=== PATIENT | female | born 1985 | race Two or more races ===

== ENCOUNTER → 2019-07-16 | Outpatient (CLI) | payer OTHER ==
--- NOTE | 2019-07-16 18:00 | REP ---
Clinical: Trauma. Technique: AP and lateral views of the right forearm. Findings: No acute fracture or dislocation. Skeletal structures, joint spaces, and surrounding soft tissues are normal. No subcutaneous emphysema or foreign body. Impression: No acute fracture or dislocation. Electronically Signed by Sebastian Flower MD 07/16/2019 05:52 P
== END ==
LOC: M LRY 17:41
PROVIDERS: ATTEND Nurse Practitioner Family
DX: S59.911A Unspecified injury of right forearm, initial encounter (principal); X58.XXXA Exposure to other specified factors, initial encounter; Y92.9 Unspecified place or not applicable
CPT/HCPCS: 73090; 87804; 96372; G0463; J1885

== ENCOUNTER → 2020-01-31 | Outpatient (CLI) | payer OTHER ==
[~2020-01-31] MED LIST: E-Z-GAS II EFFERVESCENT PACKET (SODIUM BICARB./CITRIC ACID/SIMETHICONE) As Ordered ONE; E-Z-HD 98% w/w 340GM SUSP BTL As Ordered ONE; E-Z-PAQUE 96% w/w SUSP 176GM BTL As Ordered ONE
--- NOTE | 2020-03-02 09:05 | REP ---
UPPER GI SINGLE CONTRAST The procedure was performed under the direct supervision of Dr. Sol. The images were reviewed with Dr. Sol. The cone operator film shows no organomegaly or pathological masses. The intestinal gas pattern is nonspecific. There are surgical clips noted in the right upper quadrant. There are surgical sutures in the epigastric region consistent with the patients history of gastric sleeve. There is lumbar fixation hardware at L4 and L5. Liquid barium was given in the erect and prone oblique positions in order to perform a double contrast upper GI examination. The oral and pharyngeal stages of deglutition are unremarkable. The esophageal transport and prompt and efficient and there is no esophagitis, stricture, or mucosal ring. There is a sliding type hiatal hernia. There is gastroesophageal reflux demonstrated to the level of the lj. In the fundus of the stomach, there are thickened folds, which likely represent gastritis. There is no hunter ulcer identified. The remainder of the stomach demonstrates postsurgical changes consistent with the patients history of gastric sleeve. The duodenum is grossly normal. The mucosal folds are smooth and regular. There is no evidence of duodenitis, pancreatitis, peptic ulcer disease, or neoplasm. The visualized portion of the proximal small bowel appears normal in course and caliber. IMPRESSION: * There is a sliding-type hiatal hernia with gastroesophageal reflux demonstrated to the level of the lj. * There are thickened folds in the gastric fundus, which likely represents gastritis. There is no hunter ulcer identified. 1.2 minutes of fluoroscopy time was utilized for this procedure. [facility]
== END ==
LOC: M RAD 07:47
PROVIDERS: ATTEND Physician Assistant
DX: K44.9 Diaphragmatic hernia without obstruction or gangrene (principal); K21.0 Gastro-esophageal reflux disease with esophagitis; Z98.84 Bariatric surgery status

== ENCOUNTER 2021-10-25 18:47 | Emergency (ER) | payer OTHER ==
[~2021-10-25] VITALS: Ht 157.5 cm; Wt 72.7 kg
[2021-10-25 23:53] VITALS: BP 156/96
[2021-10-26] MEDS ORDERED: guaiFENesin ER 600 MG TAB PO STA (01:14)
[2021-10-26] MEDS ORDERED: BENZONATATE 100MG CAPSULE PO ONE (01:15)
[2021-10-26] MEDS ORDERED: KETOROLAC 60MG 2ML VIAL IM ONE (01:15)
[2021-10-26] MEDS ORDERED: LIDOCAINE VISCOUS 2% SOLN 15ML UDC SS ONE (01:15)
[2021-10-26] MEDS ORDERED: AZITHROMYCIN 250MG TABLET PO ONE (02:05)
[2021-10-26] MEDS ORDERED: MUCI1TAB16 PO (02:09)
[2021-10-26] MEDS ORDERED: LIDO2SOL17 PO (02:09)
[2021-10-26] MEDS ORDERED: BENZ200C70 PO (02:09)
[2021-10-26] MEDS ORDERED: AZIT-12 PO (02:09)
[2021-10-26] MEDS ORDERED: PSEU120T19 PO (02:09)
== END 2021-10-26 02:21 | disposition home or self-care (01) ==
LOC: M ED 18:47
DX: J06.9 Acute upper respiratory infection, unspecified (principal); J45.909 Unspecified asthma, uncomplicated; F17.200 Nicotine dependence, unspecified, uncomplicated; Z98.84 Bariatric surgery status; Z88.0 Allergy status to penicillin
CPT/HCPCS: 71046; 87486; 87581; 87633; 87798; 96372; 99283; J1885

== ENCOUNTER → 2022-04-03 | Outpatient (REF) ==
[~2022-04-03] MED LIST changes: +AZIT-12 PO; +BENZ200C70 PO; -E-Z-GAS II EFFERVESCENT PACKET (SODIUM BICARB./CITRIC ACID/SIMETHICONE) As Ordered ONE; -E-Z-HD 98% w/w 340GM SUSP BTL As Ordered ONE; -E-Z-PAQUE 96% w/w SUSP 176GM BTL As Ordered ONE; +LIDO2SOL17 PO; +MUCI1TAB16 PO; +PSEU120T19 PO
== END ==
LOC: M LABSMTC 09:31
PROVIDERS: ATTEND Pediatrics
DX: Z20.822 Contact with and (suspected) exposure to COVID-19 (principal)

== ENCOUNTER → 2022-05-27 | Outpatient (REF) | LOC: M EMP 10:47 | PROVIDERS: ATTEND Family Medicine | DX: Z11.52 Encounter for screening for COVID-19 (principal) ==

== ENCOUNTER → 2022-07-15 | Outpatient (REF) | payer OTHER ==
[~2022-07-15] MED LIST changes: +LIDO15SO4 PO; -LIDO2SOL17 PO
== END ==
LOC: M LAB REF 16:13
PROVIDERS: ATTEND Physician Assistant
DX: R30.0 Dysuria (principal)

== ENCOUNTER 2022-11-01 19:04 | Emergency (ER) | payer OTHER ==
[~2022-11-01] VITALS: Ht 157.5 cm; Wt 76.4 kg
[~2022-11-01 19:04] MED LIST changes: +LIDO15SO PO; -LIDO15SO4 PO
[2022-11-01 19:05] VITALS: BP 141/73
[2022-11-01] MEDS ORDERED: AMPH1CAP16 (19:11)
[2022-11-01] MEDS ORDERED: DOCU100C16 (19:11)
[2022-11-01] MEDS ORDERED: OMEP-173 (19:12)
[2022-11-01] MEDS ORDERED: VENL75CA47 (19:12)
[2022-11-02] MEDS ORDERED: KETOROLAC 60MG 2ML VIAL IM ONE (00:30)
== END 2022-11-02 01:02 | disposition home or self-care (01) ==
LOC: M ED 19:04
DX: S93.402A Sprain of unspecified ligament of left ankle, initial encounter (principal); W01.0XXA Fall on same level from slipping, tripping and stumbling without subsequent striking against object, initial encounter; Y92.009 Unspecified place in unspecified non-institutional (private) residence as the place of occurrence of the external cause; F90.9 Attention-deficit hyperactivity disorder, unspecified type; F41.9 Anxiety disorder, unspecified; J45.909 Unspecified asthma, uncomplicated; K21.9 Gastro-esophageal reflux disease without esophagitis; Z98.84 Bariatric surgery status; Z88.0 Allergy status to penicillin
CPT/HCPCS: 73610; 99284; J1885

== ENCOUNTER → 2022-12-15 | Outpatient (CLI) | payer OTHER ==
[~2022-12-15] MED LIST changes: +AMPH1CAP16; +DOCU100C16; +OMEP-173; +VENL75CA47
== END ==
LOC: M SOG 10:50
PROVIDERS: ATTEND Orthopaedic Surgery
DX: M25.572 Pain in left ankle and joints of left foot (principal)

== ENCOUNTER → 2023-05-26 | Outpatient (CLI) | payer OTHER ==
[~2023-05-26] VITALS: Ht 157.5 cm; Wt 75.0 kg
[~2023-05-26] MED LIST changes: +ACETAMINOPHEN TAB 650MG DOSE (2X325MG) PO ONE; +ALBUTEROL SULFATE 2.5MG/0.5ML INH NEB SOLN INH PRN; +EPINEPHrine INJ 1 MG/ML 1ML AMP IM PRN; +FERRIC CARBOXYMALTOSE INJ 750 MG in NS 250 ML (>50kg) IV ONE; +NS 1,000 ML IV SCH; +diphenhydrAMINE 25MG CAP PO ONE; +diphenhydrAMINE 50MG/ML VIAL IV PRN; +methylPREDNISolone 125MG 2ML VIAL IV PRN
[2023-05-26 11:20] VITALS: BP_SYST 112; BP_SYST 131; BP_DIAS 68; BP_DIAS 79; O2SAT 100; O2SAT 97
[2023-05-26 13:30] VITALS: BP 137/84; O2SAT 99
== END ==
LOC: M INFU 11:06
PROVIDERS: ATTEND Family Medicine
DX: D50.9 Iron deficiency anemia, unspecified (principal); Z88.0 Allergy status to penicillin
CPT/HCPCS: 96365; J1439

== ENCOUNTER 2023-06-06 13:03 | Outpatient (CLI) | payer OTHER ==
[~2023-06-06] VITALS: Ht 157.5 cm; Wt 75.9 kg
[~2023-06-06 13:03] MED LIST changes: -ACETAMINOPHEN TAB 650MG DOSE (2X325MG) PO ONE; -FERRIC CARBOXYMALTOSE INJ 750 MG in NS 250 ML (>50kg) IV ONE; -NS 1,000 ML IV SCH; -diphenhydrAMINE 25MG CAP PO ONE
[2023-06-06] MEDS ORDERED: NS 1,000 ML IV SCH (13:30)
[2023-06-06] MEDS ORDERED: FERRIC CARBOXYMALTOSE INJ 750 MG in NS 250 ML (>50kg) IV ONE ×3 (13:30)
[2023-06-06] MEDS ORDERED: diphenhydrAMINE 25MG CAP PO ONE (13:30)
[2023-06-06] MEDS ORDERED: ACETAMINOPHEN TAB 650MG DOSE (2X325MG) PO ONE (13:30)
[2023-06-06 13:36] VITALS: BP 133/73; O2SAT 100
[2023-06-06 15:15] VITALS: BP 133/82; O2SAT 100
== END 2023-06-06 15:15 | disposition home or self-care (01) ==
LOC: M INFU 13:03
PROVIDERS: ATTEND Family Medicine
DX: D50.9 Iron deficiency anemia, unspecified (principal); Z88.0 Allergy status to penicillin
CPT/HCPCS: 96365; J1439

== ENCOUNTER → 2023-06-08 | Outpatient (CLI) | payer OTHER ==
[~2023-06-08] MED LIST changes: -ALBUTEROL SULFATE 2.5MG/0.5ML INH NEB SOLN INH PRN; -EPINEPHrine INJ 1 MG/ML 1ML AMP IM PRN; -diphenhydrAMINE 50MG/ML VIAL IV PRN; -methylPREDNISolone 125MG 2ML VIAL IV PRN
== END ==
LOC: M PLAIMG 09:05
PROVIDERS: ATTEND Otolaryngology
DX: J33.0 Polyp of nasal cavity (principal); J34.2 Deviated nasal septum

== ENCOUNTER 2023-10-09 10:39 | Day surgery (SDC) | payer OTHER ==
[~2023-10-09] VITALS: Ht 157.5 cm; Wt 72.8 kg
[~2023-10-09 10:39] MED LIST changes: +ALBU2.5V10 INH; +AMPH1CAP4 PO; +CETI-24 PO; +COLA100C5 PO; -LIDO15SO PO; +LIDO15SO8 PO; +OMEP40CA4 PO; +PROA1AER2 INH; +THERTAB52 PO
[2023-10-09] MEDS ORDERED: LR 1,000 ML IV SCH ×2 (11:10→13:10)
[2023-10-09] MEDS ORDERED: SUGAMMADEX SODIUM 500 MG/5 ML VIAL (BRIDION) As Ordered ONE (11:37)
[2023-10-09] MEDS ORDERED: HYDROmorphone HCL 2MG/ML 1ML VIAL As Ordered ONE (11:37)
[2023-10-09] MEDS ORDERED: MIDAZOLAM INJ 2MG/2ML VIAL As Ordered ONE (11:37)
[2023-10-09] MEDS ORDERED: propofoL 200 MG/20 ML VIAL As Ordered ONE (11:37)
[2023-10-09] MEDS ORDERED: ROCURONIUM BROMIDE 50MG/5ML VIAL As Ordered ONE (11:37)
[2023-10-09] MEDS ORDERED: ONDANSETRON 4MG 2ML VIAL As Ordered ONE (11:37)
[2023-10-09] MEDS ORDERED: LIDOCAINE 2% 100MG/5ML SDV (FOR ANES.) As Ordered ONE (11:37)
[2023-10-09] MEDS ORDERED: fentaNYL 100 MCG/2 ML INJECTION As Ordered ONE (11:37)
[2023-10-09] MEDS ORDERED: ACETAMINOPHEN 1000MG 100ML IV BAG As Ordered ONE (11:37)
[2023-10-09] MEDS: LIDOCAINE W/EPINEPHRINE 1% 20ML VIAL As Ordered ONE (11:41)
[2023-10-09] MEDS: OXYMETAZOLINE 0.05% NASAL SPRAY (AFRIN) As Ordered ONE (11:41)
[2023-10-09] MEDS: COCAINE 4% 4ML NASAL SOLUTION BTL As Ordered ONE (11:41)
[2023-10-09] MEDS ORDERED: ESMOLOL INJ 100MG/10ML VIAL As Ordered ONE (12:30)
[2023-10-09] MEDS ORDERED: ALBUTEROL SULFATE 2.5MG/0.5ML INH NEB SOLN INH ONE (13:10)
[2023-10-09] MEDS ORDERED: LACRILUBE (AKWA TEARS) OPHTH OINT 3.5GM As Ordered ONE (13:22)
[2023-10-09] MEDS: fentaNYL 100 MCG/2 ML INJECTION IV PRN (13:30)
[2023-10-09] MEDS: HYDROMORPHONE HCL 0.5 MG/ 0.5 ML SYRINGE IV PRN ×2 (13:39→14:30)
[2023-10-09] MEDS: oxyCODONE 5MG TAB PO PRN (13:39)
[2023-10-09] MEDS: ONDANSETRON 4MG 2ML VIAL IV PRN (14:14)
[2023-10-09] MEDS ORDERED: OXYMETAZOLINE 0.05% NASAL SPRAY (AFRIN) ONE (14:45)
[2023-10-09] MEDS: MORPHINE 4 MG/ML 1ML VIAL IV STA (16:38)
[2023-10-09 16:46] VITALS: BP 126/72; TEMP 97.6; O2SAT 98
== END 2023-10-09 17:10 | disposition home or self-care (01) ==
LOC: M SDC 10:39
PROVIDERS: ATTEND Otolaryngology
DX: J33.0 Polyp of nasal cavity (principal); J34.2 Deviated nasal septum; J32.9 Chronic sinusitis, unspecified; J34.3 Hypertrophy of nasal turbinates; K21.9 Gastro-esophageal reflux disease without esophagitis; J45.909 Unspecified asthma, uncomplicated; Z79.51 Long term (current) use of inhaled steroids; Z79.899 Other long term (current) drug therapy; J30.2 Other seasonal allergic rhinitis; Z88.0 Allergy status to penicillin; Z87.891 Personal history of nicotine dependence
CPT/HCPCS: 30140; 30520; 31255; 31267; 81025; 88305; A6024; C9143; J0131; J1100; J1170; J1805; J2250; J2405; J3010

== ENCOUNTER 2023-11-27 09:30 | Day surgery (SDC) | payer OTHER ==
[~2023-11-27] VITALS: Ht 157.5 cm; Wt 73.4 kg
[~2023-11-27 09:30] MED LIST changes: +ALBU8.5H; +CYAN1000VL IM; +NS 1,000 ML IV ONE; +OMEP-173 PO; +VENL75CA47 PO; +VITA1CAP25 PO
[2023-11-27] MEDS ORDERED: propofoL 200 MG/20 ML VIAL As Ordered ONE (10:32)
[2023-11-27 11:59] VITALS: TEMP 97.4
[2023-11-27 12:21] VITALS: BP 143/83; O2SAT 100
== END 2023-11-27 12:28 | disposition home or self-care (01) ==
LOC: M OPP 09:30
PROVIDERS: ATTEND Internal Medicine Gastroenterology
DX: K62.89 Other specified diseases of anus and rectum (principal); K60.2 Anal fissure, unspecified; R19.4 Change in bowel habit; K92.1 Melena; K20.90 Esophagitis, unspecified without bleeding; Z98.0 Intestinal bypass and anastomosis status; K44.9 Diaphragmatic hernia without obstruction or gangrene; R12 Heartburn; D50.9 Iron deficiency anemia, unspecified; Z98.84 Bariatric surgery status; J45.909 Unspecified asthma, uncomplicated; Z79.51 Long term (current) use of inhaled steroids; Z79.899 Other long term (current) drug therapy

== ENCOUNTER → 2024-09-04 | Outpatient (CLI) | payer OTHER ==
[~2024-09-04] MED LIST changes: -NS 1,000 ML IV ONE
== END ==
LOC: M CARPUL 08:58
PROVIDERS: ATTEND Internal Medicine
DX: J45.40 Moderate persistent asthma, uncomplicated (principal)